=== PATIENT | female | born 1945 | race Caucasian/White ===

== ENCOUNTER → 2017-01-30 | Outpatient (CLI) | payer OTHER ==
[~2017-01-30] VITALS: Ht 157.5 cm; Wt 68.7 kg
[~2017-01-30] MED LIST: AMBIEN 5 MG TABL5 M1 PO; BAYER CHEWABLE81 MG PO; CALCIUM 600 +1 EAC5 PO; EVISTA PO; FISH OIL 1,0001 EAC5 PO; FLEXERIL PO; FOSAMAX 70 MG T70 MG PO; GLUCOSAMINE HC500 MG PO; HYDROCODON-ACE1 EACH PO; MEGA BIOTIN10000 MCG PO; NORCO 5-325 TA1 EACH PO; PROTONIX40 M2 PO; RELAFEN500 MG PO; TOPROL XL50 MG PO; TRAMADOL 50 MG50 MG PO; UNICOMPLEX M TA1 TA1 PO; VITAMIN B-12500 MCG PO; VITAMIN D1000 UNI1 PO; VITAMIN E1000 UNI3 PO; ZANTAC 150MG T150 MG PO; ZIAC 2.5-6.251 EACH PO
--- NOTE | ~2017-01-30 | HPC ---
[facility] [place] [address] PAIN MANAGEMENT CONSULTATION Name: J CARLOS JONES Room #: REG [facility] Lee#: [id number] Admission: 01/30/17 Attend Phys: Ramin James MD Discharge: Date of : 45 Report #: [id number] THIS REPORT FOR: //name// CC: Isreal James DATE OF SERVICE: 01/30/2017 DATE OF REGISTRATION: 01/30/2017 Followup visit for chronic intractable low back pain with radiculopathy as well as tenderness over the sacroiliac joint. The patient returns to pain clinic today for followup. She would like another epidural injection. I performed these injections at intervals not shorter than 8 months. Her last injection was in May of 2016. Prior to that it was full year. Prior to that it was around the same interval. She gets good relief and uses to help with persistent ongoing pain related to levocurvature of the thoracic spine, diffuse disk bulging at L4-L5 with severe facet arthrosis and central stenosis. Today, she reports that her pain is 0-1 at rest. It is much worse with activities such as gardening. She has given up many of her daily gardening activities due to her pain and she would like to resume some of them. We discussed body mechanics. PHYSICAL EXAMINATION: She is a very pleasant, outgoing 72-year-old. Her blood pressure is 161/94, heart rate 88. She has tenderness across her low back. She has pain with lateral tilt and straight leg raising, which reproduces some radicular symptoms into the leg. IMPRESSION: Chronic low back pain with radiculopathy secondary to spondylosis, which is mild. RECOMMENDATIONS: Repeat epidural steroid injection. It has been so helpful in the past with good long duration and response. DESCRIPTION OF PROCEDURE: She was taken to fluoroscopic suite for treatment where she was placed prone, skin was prepped with ChloraPrep. Skin was anesthetized in L4-L5. Tuohy epidural needle was advanced into the epidural space. There was no blood or CSF aspirated. A 1 mL of Omnipaque was injected with good spread of dye observed. It was followed then by 3 mL of 0.5% lidocaine mixed with 80 mg of triamcinolone. She tolerated the procedure well and was observed for 45 minutes and discharged. [address] [address] PAIN MANAGEMENT CONSULTATION Name: J CARLOS JONES Room #: REG [facility] Howard#: [id number] Admission: 01/30/17 Attend Phys: Ramin Jaems MD Discharge: Date of : 45 Report #: [id number] Followup visit planned as needed. By: [id number] Ramin James MD /nt
[2017-01-30 13:07] VITALS: BP 161/94
== END ==
LOC: PAIN 07:10
DX: M47.26 Other spondylosis with radiculopathy, lumbar region (principal); I10 Essential (primary) hypertension

== ENCOUNTER → 2020-03-03 | Outpatient (CLI) | payer OTHER | LOC: SJCVC 13:23 | PROVIDERS: ATTEND Internal Medicine | DX: I10 Essential (primary) hypertension (principal); R06.02 Shortness of breath; D50.0 Iron deficiency anemia secondary to blood loss (chronic); E78.5 Hyperlipidemia, unspecified; K21.9 Gastro-esophageal reflux disease without esophagitis; K44.9 Diaphragmatic hernia without obstruction or gangrene; Z79.899 Other long term (current) drug therapy ==

== ENCOUNTER → 2021-07-03 | Outpatient (CLI) | payer OTHER | LOC: SJCVC 11:23 | PROVIDERS: ATTEND Internal Medicine | DX: I10 Essential (primary) hypertension (principal); E78.5 Hyperlipidemia, unspecified; D50.0 Iron deficiency anemia secondary to blood loss (chronic); K21.9 Gastro-esophageal reflux disease without esophagitis; K44.9 Diaphragmatic hernia without obstruction or gangrene; M81.0 Age-related osteoporosis without current pathological fracture; Z79.899 Other long term (current) drug therapy; Z88.8 Allergy status to other drugs, medicaments and biological substances ==